=== PATIENT | male | born 1985 | race Two or more races ===

== ENCOUNTER 2019-03-24 19:16 | Emergency (ER) | payer MEDICAID ==
[~2019-03-24] VITALS: Ht 180.3 cm; Wt 91.0 kg
[2019-03-24] MEDS ORDERED: LORAZEPAM 2MG/ML CPJ ONE (19:32)
[2019-03-24] MEDS ORDERED: OLANZAPINE 10 MG/VIAL IM ONE ×2 (19:34→23:30)
[2019-03-24] MEDS ORDERED: ACETAMINOPHEN 325MG TABLET PO ONE (19:45)
[2019-03-24] MEDS ORDERED: LORAZEPAM 2MG/ML CPJ IM STA (23:19)
[2019-03-25 04:29] VITALS: BP 111/62
== END 2019-03-25 04:31 | disposition home or self-care (01) ==
LOC: ER 19:16
DX: S61.412A Laceration without foreign body of left hand, initial encounter (principal); S09.90XA Unspecified injury of head, initial encounter; Z98.890 Other specified postprocedural states; X58.XXXA Exposure to other specified factors, initial encounter; Y93.89 Activity, other specified; Y92.89 Other specified places as the place of occurrence of the external cause; Y99.8 Other external cause status
CPT/HCPCS: 70450; 99284; J2060; J3490